=== PATIENT | female | born 1945 | race Asian ===

== ENCOUNTER 2024-09-01 10:34 | Day surgery (SDC) | payer MEDICARE, MEDICAID ==
[~2024-09-01] VITALS: Ht 147.3 cm; Wt 41.4 kg
[2024-09-01] MEDS ORDERED: albumin 25% 100mL bottle x 1 IV PRN (11:00)
[2024-09-01] MEDS ORDERED: IBUP-2417 PO (11:07)
[2024-09-01] MEDS ORDERED: AZEL137S4 BOTHNARES (11:07)
[2024-09-01] MEDS ORDERED: GABA-530 PO (11:07)
[2024-09-01] MEDS ORDERED: ROSU10TA72 PO (11:07)
[2024-09-01] MEDS ORDERED: MELO-100 PO (11:07)
[2024-09-01] MEDS ORDERED: ALEN70TA80 PO (11:07)
== END 2024-09-01 12:25 | disposition home or self-care (01) ==
LOC: SSTAY O 10:34
PROVIDERS: ATTEND Family Medicine
DX: J90 Pleural effusion, not elsewhere classified (principal); Z53.8 Procedure and treatment not carried out for other reasons
CPT/HCPCS: 76604; C1729